=== PATIENT | female | born 1990 | race Caucasian/White ===

== ENCOUNTER 2016-07-17 07:19 | Emergency (ER) | payer BC ==
[2016-07-17 07:31] VITALS: BP 121/65
--- NOTE | 2016-07-17 07:42 | UC ---
Throat Pain/Nasal Guru HPI - HPI Summary HPI Summary: 25 yo female with worsening URI symptoms x 2 weeks Now with sinus pain and pressure as well as left ear pain no f/c no n/v/d - History of Current Complaint Chief Complaint: UCGeneralIllness Stated Complaint: SINUS PRESSURE Hx Obtained From: Patient Hx Last Menstrual Period: IUD Onset/Duration: Gradual Onset, Lasting Weeks Severity: Moderate Pain Intensity: 4 Pain Scale Used: 0-10 Numeric Cough: Nonproductive Associated Signs & Symptoms: Positive: Sinus Discomfort, Nasal Discharge Related History: Prior ENT Surgery - tonsillectomy - Epiglottits Risk Factors Epiglottis Risk Factors: Negative - Allergies/Home Medications Allergies/Adverse Reactions: Allergies Allergy/AdvReac Type Severity Reaction Status Date / Time Cefaclor [From [facility]] Allergy Hives Verified 11/09/15 12:20 PMH/Surg Hx/FS Hx/Imm Hx Previously Healthy: Yes Endocrine History Of: Denies: Diabetes, Thyroid Disease Cardiovascular History Of: Denies: Cardiac Disorders, Hypertension Respiratory History Of: Denies: COPD, Asthma, Bronchitis, Pneumonia GI/ History Of: Denies: Ulcer Psychological History Of: Reports: Anxiety, Depression - Surgical History Surgical History: Yes Surgery Procedure, Year, and Place: tonsillectomy 2010, GASTRIC BYPASS 10/2015 - Family History Known Family History: Positive: Hypertension, Diabetes - Social History Alcohol Use: None Substance Use Type: None Smoking Status (MU): Never Smoked Tobacco Have You Smoked in the Last Year: No - Immunization History Most Recent Influenza Vaccination: NONE Most Recent Tetanus Shot: 2007 Most Recent Pneumonia Vaccination: 2007 Review of Systems Constitutional: Negative Skin: Negative Eyes: Negative ENT: Ear Ache, Nasal Discharge Respiratory: Cough Cardiovascular: Negative Gastrointestinal: Negative Genitourinary: Negative Motor: Negative Neurovascular: Negative Musculoskeletal: Negative Neurological: Negative Psychological: Negative All Other Systems Reviewed And Are Negative: Yes Physical Exam Triage Information Reviewed: Yes Appearance: Well-Appearing, No Pain Distress, Well-Nourished Vital Signs: Initial Vital Signs Temp 97.8 F 07/17/16 07:24 Pulse 88 07/17/16 07:24 Resp 16 07/17/16 07:24 BP 121/65 07/17/16 07:24 Pulse Ox 100 07/17/16 07:24 Vital Signs Reviewed: Yes Eyes: Positive: Conjunctiva Clear ENT: Positive: Nasal congestion, Nasal drainage, TM bulging - left, Other: - L> R max sinus tenderness. Negative: Hearing grossly normal - decreased hearing left ear, TMs normal, TM dull, TM red, Tonsillar swelling, Tonsillar exudate, Trismus, Muffled/hoarse voice Dental: Negative: Dental Fracture @, Cervical Lymphadenopathy Neck: Positive: Supple, Nontender, No Lymphadenopathy Respiratory: Positive: Lungs clear, Normal breath sounds, No respiratory distress, No accessory muscle use. Negative: Respiratory distress, Decreased breath sounds, Accessory muscle use, Rhonchi, Stridor, Wheezing, Expiration Cardiovascular: Positive: RRR, No Murmur. Negative: Pulses Normal, Tachycardia , Bradycardia Abdomen Description: Positive: Nontender, No Organomegaly. Negative: CVA Tenderness (R), CVA Tenderness (L) Musculoskeletal: Positive: ROM Intact, No Edema Neurological: Positive: Alert, Muscle Tone Normal Psychological Exam: Normal Skin Exam: Normal Throat Pain/Nasal Course/Dx - Differential Dx/Diagnosis Provider Diagnoses: acute sinusitis Discharge - Discharge Plan Condition: Stable Disposition: HOME Prescriptions: Clarithromycin [Biaxin] 500 mg PO BID #200 ml Fluticasone NASAL SPRAY 50MCG* [Flonase NASAL SPRAY 50MCG*] 2 spray BOTH NARES DAILY #1 btl Patient Education Materials: Sinusitis (ED), Serous Otitis Media (ED) Referrals: Non Staff,Doctor [Primary Care Provider] - Additional Instructions: recheck for new or worsening symptoms recheck in 5 days if not improved
== END 2016-07-17 07:49 | disposition home or self-care (01) ==
LOC: UCCORT 07:19
DX: J01.90 Acute sinusitis, unspecified (principal); Z88.1 Allergy status to other antibiotic agents
CPT/HCPCS: 99212; G0463

== ENCOUNTER 2017-10-18 18:49 | Emergency (ER) | payer BC ==
--- NOTE | 2017-10-18 19:04 | UC ---
Throat Pain/Nasal Guru HPI - HPI Summary HPI Summary: 27 y/o DEMETRI presents with mild body aches and sore throat that began this morning. She is concerned that she might have the flu because both of her parents have it. Has not taken anything OTC. Denies fever, chills, cough, SOB, chest pain, abdominal pain, n/v/d/c. - History of Current Complaint Chief Complaint: UCRespiratory Stated Complaint: COLD FLU SYMPTOMS Time Seen by Provider: 10/18/17 19:02 Hx Obtained From: Patient Hx Last Menstrual Period: IUD Onset/Duration: Sudden Onset Severity: Mild Pain Intensity: 2 Pain Scale Used: 0-10 Numeric - Allergies/Home Medications Allergies/Adverse Reactions: Allergies Allergy/AdvReac Type Severity Reaction Status Date / Time cefaclor [From [facility]] Allergy Hives Verified 10/18/17 19:05 Home Medications: Home Medications NK [No Home Medications Reported] 10/18/17 [History Confirmed 10/18/17] PMH/Surg Hx/FS Hx/Imm Hx - Additional Past Medical History Additional PMH: None Previously Healthy: Yes - Surgical History Surgical History: Yes Surgery Procedure, Year, and Place: tonsillectomy 2010, GASTRIC BYPASS 10/2015 - Family History Known Family History: Positive: Hypertension, Diabetes - Social History Occupation: Employed Full-time Lives: With Family Alcohol Use: None Substance Use Type: None Smoking Status (MU): Never Smoked Tobacco Have You Smoked in the Last Year: No - Immunization History Most Recent Influenza Vaccination: NONE Most Recent Tetanus Shot: 2007 Most Recent Pneumonia Vaccination: 2007 Review of Systems Constitutional: Other - Body aches Skin: Negative Eyes: Negative ENT: Sore Throat Respiratory: Negative Cardiovascular: Negative Gastrointestinal: Negative Neurovascular: Negative Musculoskeletal: Negative Neurological: Negative Psychological: Negative All Other Systems Reviewed And Are Negative: Yes Physical Exam - Summary Physical Exam Summary: GENERAL: NAD. Obese SKIN: No rashes, sores, ulcers, masses, lesions. HEENT: Head: AT/NC Eyes: EOM intact. Conjunctiva clear without inflammation or discharge. Ears: Hearing grossly normal. TMs intact, no bulging, erythema, or edema. Nose: Nasal mucosa pink and moist. NTTP maxillary and frontal sinus. Throat: Posterior oropharynx without exudates, erythema, or tonsillar enlargement. Uvula midline. NECK: Supple. Nontender. No lymphadenopathy. CHEST: CTAB. No r/r/w. No accessory muscle use. Breathing comfortably and in no distress. CV: RRR. Without m/r/g. Pulses intact. Brisk cap refill. NEURO: Alert. CN II-XII grossly intact. PSYCH: Age appropriate behavior. Triage Information Reviewed: Yes Throat Pain/Nasal Course/Dx - Course Course Of Treatment: POC flu negative. Suspect viral illness - Differential Dx/Diagnosis Provider Diagnoses: Viral illness Discharge - Sign-Out/Discharge Documenting (check all that apply): Discharge - Discharge Plan Condition: Stable Disposition: HOME Patient Education Materials: Viral Syndrome (ED) Referrals: Non Staff,Doctor [Primary Care Provider] - Additional Instructions: If you develop a fever, shortness of breath, chest pain, new or worsening symptoms - please call your PCP or go to the ED. - Billing Disposition and Condition Condition: STABLE Disposition: HOME
[2017-10-18 19:05] VITALS: BP 131/72
== END 2017-10-18 19:35 | disposition home or self-care (01) ==
LOC: UCEAST 18:49
DX: B34.9 Viral infection, unspecified (principal); Z88.1 Allergy status to other antibiotic agents
CPT/HCPCS: 87502; 99211; G0463

== ENCOUNTER 2017-10-24 17:29 | Emergency (ER) | payer BC ==
[2017-10-24 18:09] VITALS: BP 128/82
--- NOTE | 2017-10-24 19:05 | UC ---
Alla Roberts Nilda, scribed for Mary Cantrell MD on 10/24/17 at 1858 . FLU HPI - HPI Summary HPI Summary: This patient is a 27 year old F presenting to [facility] accompanied by with a chief complaint of constant sinus infection-like symptoms for the past 4-5 days. Pt states she was here last week to check for flu due to recent sick contact with mother who was positive for influenza. Labs had revealed she was negative for flu though symptoms have been worsening since last visit. The patient rates the pain 5/10 in severity. Symptoms aggravated and alleviated by nothing including Mucinex. Patient reports sinus pain, bilat ear pain (4 days) , fever, chills, productive cough (green), and nausea secondary to mucous. Pt states occasional yeast infection with abx. Pt notes Z-dee dee usually resolved sinus infection in the past. Pt states she takes Advil for fever. Patients medication reviewed this visit. - History of Current Complaint Chief Complaint: UCRespiratory Stated Complaint: SINUS & EAR PAIN Time Seen by Provider: 10/24/17 18:15 Hx Obtained From: Patient Hx Last Menstrual Period: IUD Onset/Duration: Sudden Onset, Lasting Days, Still Present Severity Initially: Moderate Pain Intensity: 5 Pain Scale Used: 0-10 Numeric Associated Signs & Symptoms: Positive: Fever, Cough, Nasal Congestion Related Hx: Possible Flu/Infectious Exposure - Allergy/Home Medications Allergies/Adverse Reactions: Allergies Allergy/AdvReac Type Severity Reaction Status Date / Time cefaclor [From [facility]] Allergy Hives Verified 10/24/17 18:09 PMH/Surg Hx/FS Hx/Imm Hx Previously Healthy: Yes Endocrine History: Other Other Endocrine History: negative diabetes Psychological History: Anxiety, Depression - Surgical History Surgical History: Yes Surgery Procedure, Year, and Place: tonsillectomy 2010, GASTRIC BYPASS 10/2015 - Family History Known Family History: Positive: Hypertension, Diabetes - Social History Occupation: Employed Full-time Lives: With Family Alcohol Use: None Substance Use Type: None Smoking Status (MU): Never Smoked Tobacco Have You Smoked in the Last Year: No - Immunization History Most Recent Influenza Vaccination: NONE Most Recent Tetanus Shot: 2007 Most Recent Pneumonia Vaccination: 2007 Review of Systems Constitutional: Fever, Chills ENT: Ear Ache - with drainage, Sinus Pain/Tenderness Respiratory: Cough Gastrointestinal: Nausea All Other Systems Reviewed And Are Negative: Yes Physical Exam Triage Information Reviewed: Yes Appearance: Well-Appearing, No Pain Distress, Well-Nourished Vital Signs: Initial Vital Signs Temp 97.7 F 10/24/17 18:05 Pulse 68 10/24/17 18:05 Resp 18 10/24/17 18:05 BP 128/82 10/24/17 18:05 Pulse Ox 96 10/24/17 18:05 Vital Signs Reviewed: Yes Eye Exam: Normal Eyes: Positive: Conjunctiva Clear ENT: Positive: Pharynx normal, Nasal congestion, Other - left tm mild fluid clear turbinates inflammed and boggy + PND + TTP max sinus L>R No erythema, no exudate Dental Exam: Normal Neck exam: Normal Neck: Positive: Supple, Nontender Respiratory Exam: Normal Respiratory: Positive: Lungs clear, Normal breath sounds, No respiratory distress, No accessory muscle use Cardiovascular Exam: Normal Cardiovascular: Positive: RRR, No Murmur, Pulses Normal Abdominal Exam: Normal Abdomen Description: Positive: Nontender, No Organomegaly, Soft Bowel Sounds: Positive: Present Musculoskeletal Exam: Normal Musculoskeletal: Positive: Strength Intact Neurological Exam: Normal Neurological: Positive: Alert Psychological Exam: Normal Psychological: Positive: Normal Response To Family Skin Exam: Normal Flu Course/Dx - Course Course Of Treatment: Pt with progressive sinus pressure and discomfort. dental achiness. green secretion. low grade temp. VSS. exam c/w sinusisits. Rx amox. hydrate. humidifiy. pt declined nasal steroid. secretion precaution - Differential Dx/Diagnosis Provider Diagnoses: sinusitis Discharge - Sign-Out/Discharge Documenting (check all that apply): Discharge - Discharge Plan Condition: Stable Disposition: HOME Prescriptions: Azithromycin TAB* [Zithromax TAB (Z-DEE DEE) 250 mg #6 tabs] 2 tab PO .TODAY, THEN 1 DAILY #1 dee dee Patient Education Materials: Rhinosinusitis (ED) Referrals: [facility] PHYSICIAN REFERRAL [Outside] Non Staff,Doctor [Primary Care Provider] - Additional Instructions: - Stay well hydrated. Drink plenty of non-alcoholic, non-caffinated beverages. - Alternate ibuprofen (Advil, Motrin) 600mg and Tylenol every 3 hours for pain or fever. Take with food. Do NOT take for more than 4-5 days. - These infections are spread by secretions - do NOT share eating or drinking utensils - clean items you share with other people such as cell phones, computer mouse, TV remote, computer tablets,etc. AFter you have been on antibiotics for 2 days, change your toothbrush and your pillowcase. - get plenty of restful sleep - humidify the air in the room where you sleep - boil water, run a hot steam shower, vaporizer, cups of water by heat register - okay to take over the counter decongestant and cough medication - contact your doctor or return with questions or concerns - Billing Disposition and Condition Condition: STABLE Disposition: HOME The documentation as recorded by the Alla escalera Nilda accurately reflects the service I personally performed and the decisions made by me, Mary Cantrell MD.
== END 2017-10-24 18:40 | disposition home or self-care (01) ==
LOC: UCEAST 17:29
DX: J32.9 Chronic sinusitis, unspecified (principal); Z88.1 Allergy status to other antibiotic agents; F41.9 Anxiety disorder, unspecified; F32.9 Major depressive disorder, single episode, unspecified
CPT/HCPCS: 99212; G0463

== ENCOUNTER 2019-05-13 07:56 | Emergency (ER) | payer BC ==
[2019-05-13 08:38] VITALS: BP 135/71
--- NOTE | 2019-05-13 09:21 | UC ---
Headache HPI - HPI Summary HPI Summary: 28yo with long hx of menstrual migraines, with onset of migraine with photophobia and emesis x 1 yesterday. She has used acetaminophen without full relief, and has missed work. Took zofran with some relief of nausea. Headaches begin with brief aura, followed by bilateral pain. No associated weakness or balance loss. This is her typical migraine. Allergic to NSAID's with facial swelling. Caffeine gives some relief. - History Of Current Complaint Chief Complaint: UCHeadache Stated Complaint: MIGRAINE Time Seen by Provider: 05/13/19 09:10 Hx Obtained From: Family/Sprue Knocker Hx Last Menstrual Period: 04/13/19 Onset/Duration: Sudden Onset, Lasting Days - 2 Onset Of Symptoms: Sudden Pain Intensity: 7 Timing: Constant Character: Typical Headache, Migraine Location of Headache: Diffuse Aggravating Factor(s): Exertion, Position Change, Bright Lights Allevating Factor(s): Rest, Medication Associated Signs And Symptoms: Positive: Nausea, Vomiting. Negative: Dizziness , Seizure, Fever, Neck Pain, Neck Stiffness, Decreased LOC - Risk Factors SAH Risk Factors: Negative Meningitis Risk Factors: Negative SDH Risk Factors: Negative - Allergies/Home Medications Allergies/Adverse Reactions: Allergies Allergy/AdvReac Type Severity Reaction Status Date / Time acetaminophen Allergy Itching Verified 05/13/19 08:37 [From Excedrin Migraine] aspirin Allergy Itching Verified 05/13/19 08:37 [From Excedrin Migraine] caffeine Allergy Itching Verified 05/13/19 08:37 [From Excedrin Migraine] cefaclor [From Ceclor] Allergy Hives Verified 03/18/18 10:00 Home Medications: Home Medications Acetaminophen [Tylenol Extra Strength] 2 tab PO ONCE 05/13/19 [History Confirmed 05/13/19] PMH/Surg Hx/FS Hx/Imm Hx - Additional Past Medical History Additional PMH: obesity Previously Healthy: Yes Neurological History: Migraine - Surgical History Surgical History: Yes Surgery Procedure, Year, and Place: tonsillectomy 2010. GASTRIC BYPASS 10/2015. ectopic 2014 - Family History Known Family History: Positive: Hypertension, Diabetes, Other - mother has migraine - Social History Occupation: Employed Full-time Lives: With Family Alcohol Use: None Substance Use Type: None Smoking Status (MU): Never Smoked Tobacco Have You Smoked in the Last Year: No - Immunization History Most Recent Influenza Vaccination: NONE Most Recent Tetanus Shot: 2007 Most Recent Pneumonia Vaccination: 2007 Review of Systems All Other Systems Reviewed And Are Negative: Yes Constitutional: Positive: Negative Skin: Positive: Negative Eyes: Positive: Photophobia ENT: Positive: Negative Respiratory: Positive: Negative Cardiovascular: Positive: Negative Gastrointestinal: Positive: Negative Genitourinary: Positive: Negative, Other - has IUD in place Neurological: Positive: Headache. Negative: Weakness, Paresthesia, Numbness Psychological: Positive: Negative Is Patient Immunocompromised?: No Physical Exam Triage Information Reviewed: Yes Appearance: Well-Appearing, Pain Distress - mild to moderate, Obese Vital Signs: Initial Vital Signs Temp 98.1 F 05/13/19 08:32 Pulse 81 05/13/19 08:32 Resp 16 05/13/19 08:32 BP 135/71 05/13/19 08:32 Pulse Ox 100 05/13/19 08:32 Eye Exam: Other - JARVIS with mild photophobia. Normal EOM Eyes: Positive: Conjunctiva Clear ENT: Positive: Pharynx normal Neck: Positive: Supple, Nontender, No Lymphadenopathy Respiratory: Positive: Lungs clear, Normal breath sounds Cardiovascular: Positive: RRR, No Murmur Musculoskeletal: Positive: Strength Intact, ROM Intact Neurological Exam: Other - CNII to XII normal, with normal gait, no pronator drift. Neurological: Positive: Alert, Muscle Tone Normal Psychological Exam: Normal Headache Course/Dx - Course Course Of Treatment: Trial of triptan offered given hx, side effects discussed. Continue off work, try use of sumatriptan, with continued ondansetron and acetaminophen. - Differential Dx/Diagnosis Differential Diagnosis/HQI/PQRI: Migraine, Tension Headache Provider Diagnosis: Migraine Discharge ED - Sign-Out/Discharge Documenting (check all that apply): Patient Departure All imaging exams completed and their final reports reviewed: No Studies - Discharge Plan Condition: Stable Disposition: HOME Prescriptions: SUMAtriptan TAB* [Imitrex TAB*] 50 mg PO ONCE PRN #6 tab PRN Reason: Migraine Headache Patient Education Materials: Migraine Headache (ED) Forms: *Work Release Referrals: No Primary Care Phys,NOPCP [Medical Doctor] - Additional Instructions: As discussed, although this headache is established, you can try use of sumatriptan to decrease the headache. Once home, use sumatriptan along with a repeat dose of ondansetron and acetaminophen. This can cause mild sedation, but could break the headache cycle with rest. Side effects of sumatriptan include mild sedation and a sense of chest tightness. - Billing Disposition and Condition Condition: STABLE Disposition: Home
== END 2019-05-13 09:40 | disposition home or self-care (01) ==
LOC: UCCORT 07:56
DX: G43.909 Migraine, unspecified, not intractable, without status migrainosus (principal); E66.9 Obesity, unspecified; Z88.6 Allergy status to analgesic agent; Z88.8 Allergy status to other drugs, medicaments and biological substances; Z88.1 Allergy status to other antibiotic agents; Z97.5 Presence of (intrauterine) contraceptive device
CPT/HCPCS: 99212; G0463

== ENCOUNTER 2019-06-25 09:36 | Emergency (ER) | payer BC ==
[2019-06-25 09:55] VITALS: BP 131/77
--- NOTE | 2019-06-25 10:23 | UC ---
Throat Pain/Nasal Guru HPI - HPI Summary HPI Summary: Pt presents with c/o nasal congestion, sinus pressure and pain X 5 days. Pt has hx of frequent sinus infections and thinks she has a sinus infection now. - History of Current Complaint Chief Complaint: UCEar Stated Complaint: SINUS CONGESTION LEFT EAR FEVER Time Seen by Provider: 06/25/19 10:08 Hx Obtained From: Patient Hx Last Menstrual Period: mirena ?: No Onset/Duration: Sudden Onset, Lasting Days, Still Present, Worse Since - onset Severity: Moderate Pain Intensity: 4 Cough: None Associated Signs & Symptoms: Positive: Sinus Discomfort - Epiglottits Risk Factors Epiglottis Risk Factors: Negative - Allergies/Home Medications Allergies/Adverse Reactions: Allergies Allergy/AdvReac Type Severity Reaction Status Date / Time acetaminophen Allergy Itching Verified 06/25/19 09:51 [From Excedrin Migraine] aspirin Allergy Itching Verified 06/25/19 09:51 [From Excedrin Migraine] caffeine Allergy Itching Verified 06/25/19 09:51 [From Excedrin Migraine] cefaclor [From Ceclor] Allergy Hives Verified 06/25/19 09:51 Home Medications: Home Medications Levonorgestrel (Iud) [Mirena IUD] 20 mcg IU ONCE 06/25/19 [History Confirmed ] guaiFENesin [Mucinex] 600 mg PO BID 06/25/19 [History Confirmed 06/25/19] PMH/Surg Hx/FS Hx/Imm Hx Previously Healthy: Yes Cardiovascular History: Cardiac Disease - Surgical History Surgical History: Yes Surgery Procedure, Year, and Place: tonsillectomy 2010. GASTRIC BYPASS 10/2015. ectopic 2014 - Family History Known Family History: Positive: Hypertension, Diabetes, Other - mother has migraine - Social History Occupation: Employed Full-time Lives: With Family Alcohol Use: None Substance Use Type: None Smoking Status (MU): Never Smoked Tobacco Have You Smoked in the Last Year: No - Immunization History Most Recent Influenza Vaccination: NONE Most Recent Tetanus Shot: 2007 Most Recent Pneumonia Vaccination: 2007 Review of Systems All Other Systems Reviewed And Are Negative: Yes Constitutional: Positive: Fever, Chills, Fatigue Skin: Positive: Negative Eyes: Positive: Negative ENT: Positive: Sinus Congestion, Sinus Pain/Tenderness Respiratory: Positive: Negative Cardiovascular: Positive: Negative Gastrointestinal: Positive: Negative Genitourinary: Positive: Negative Motor: Positive: Negative Neurovascular: Positive: Negative Musculoskeletal: Positive: Negative Neurological: Positive: Headache Is Patient Immunocompromised?: No Physical Exam Triage Information Reviewed: Yes Appearance: Ill-Appearing Vital Signs: Initial Vital Signs Temp 97.7 F 06/25/19 09:52 Pulse 96 06/25/19 09:52 Resp 17 06/25/19 09:52 BP 131/77 06/25/19 09:52 Pulse Ox 100 06/25/19 09:52 Vital Signs Reviewed: Yes Eye Exam: Normal ENT: Positive: Nasal congestion, Sinus tenderness Dental Exam: Normal Neck exam: Normal Respiratory Exam: Normal Cardiovascular Exam: Normal Musculoskeletal Exam: Normal Neurological Exam: Normal Psychological Exam: Normal Skin Exam: Normal Throat Pain/Nasal Course/Dx - Differential Dx/Diagnosis Differential Diagnosis/HQI/PQRI: Sinusitis, URI Provider Diagnosis: Sinusitis Discharge ED - Sign-Out/Discharge Documenting (check all that apply): Patient Departure All imaging exams completed and their final reports reviewed: No Studies - Discharge Plan Condition: Stable Disposition: HOME Prescriptions: Azithromycin TAB* [Zithromax TAB (Z-DEE DEE) 250 mg #6 tabs] 2 tab PO .TODAY, THEN 1 DAILY #1 dee dee Guaifenesin/Pseudoephedrne HCl [Mucinex D ER 600-60 mg Tablet] 1 each PO Q12H # 14 tab.er.12h predniSONE TAB* [Deltasone 10 MG TAB*] 30 mg PO DAILY #12 tab Patient Education Materials: Sinusitis (ED) Forms: *Work Release Referrals: Rebecca Wayne DO [Primary Care Provider] - If Needed - Billing Disposition and Condition Condition: STABLE Disposition: Home
== END 2019-06-25 10:32 | disposition home or self-care (01) ==
LOC: UCCORT 09:36
DX: J32.9 Chronic sinusitis, unspecified (principal); Z88.8 Allergy status to other drugs, medicaments and biological substances; Z88.6 Allergy status to analgesic agent; Z88.1 Allergy status to other antibiotic agents
CPT/HCPCS: 99212; G0463